=== PATIENT | female | born 1970 | race Hispanic/Latino ===

== ENCOUNTER 2017-08-06 16:30 | Outpatient (AMBR) | payer MEDICAID, SELFPAY ==
--- NOTE | 2017-06-24 18:29 | PT.OIERPT ---
PT OP Initial Eval Patient Information Visit Reasons: Pain Medical Diagnosis: R lateral epicondylitis Treatment Dx #1: R elbow pain Start of Care: 06/24/17 Date of Onset: February 2017 Initial Assessment Subjective Pt is 46 yr old khmer speaking female who c/o R elbow pain x 5 months. 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 Today the pain is 5/10 in the R elbow and is very TTP. PMH: Ceserean x2 Imaging: X-rays of elbow with provider Pt goal: to get rid of the pain in order to do HH chores Objective R geoscience professor strength 25 lbs, L 40 lbs Wrist AROM: Strength: Flexion: 75 deg 4-/5 with elbow pain Extension: 58 deg 3+/5 with pain Special testing: Marcum test: positive Cozen's: positive TTP: moderate/severe common extensor tendon at lateral elbow Cervical screen: positive for neural tension with median nerve ULTT and L C/S sidebending Assessment Pt presentation consistent with lateral epicondylalgia and possible C/S pain referral to lateral arm and elbow. Pt has neural tension with C/S sidebending to the L and PT recommends further diagnostic imaging of C/S. Pt has decreased elbow and wrist strength, geoscience professor strength and high TTP of lateral elbow. Short Term and Prison Goals 1. Ind with HEP 2. Improved geoscience professor strength on R to 40 lbs 3. Pt will open jars with <=1/10 pain in R elbow 4. Improved wrist strength to 4+/5 without pain 5. Decreased TTP from mod to min of R lateral elbow Treatment Plan Pt has 5 visits authorized and will be scheduled for 2x a week. 1. Manual therapy 2. Therex 3. Modalities as indicated, moist heat, ice, estim Frequency and Duration 2x a week for 6 weeks Certification Dates: 06/24/17 to 09/24/17 Office Procedures PT Procedures PT Date of Service: 06/24/17 OP PT Eval Mod Complex 30 minutes: Yes
--- NOTE | 2017-06-24 18:32 | PTNOTE_ITS ---
PT OP Initial Eval Patient Information Visit Reasons: Pain Medical Diagnosis: R lateral epicondylitis Treatment Dx #1: R elbow pain Start of Care: 06/24/17 Date of Onset: February 2017 Initial Assessment Subjective Pt is 46 yr old thai speaking female who c/o R elbow pain x 5 months. 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 Today the pain is 5/10 in the R elbow and is very TTP. PMH: Ceserean x2 Imaging: X-rays of elbow with provider Pt goal: to get rid of the pain in order to do HH chores Objective R clinical research manager strength 25 lbs, L 40 lbs Wrist AROM: Strength: Flexion: 75 deg 4-/5 with elbow pain Extension: 58 deg 3+/5 with pain Special testing: Marcum test: positive Cozen's: positive TTP: moderate/severe common extensor tendon at lateral elbow Cervical screen: positive for neural tension with median nerve ULTT and L C/ S sidebending Assessment Pt presentation consistent with lateral epicondylalgia and possible C/S pain referral to lateral arm and elbow. Pt has neural tension with C/S sidebending to the L and PT recommends further diagnostic imaging of C/S. Pt has decreased elbow and wrist strength, clinical research manager strength and high TTP of lateral elbow. Short Term and Group Home Goals 1. Ind with HEP 2. Improved clinical research manager strength on R to 40 lbs 3. Pt will open jars with <=1/10 pain in R elbow 4. Improved wrist strength to 4+/5 without pain 5. Decreased TTP from mod to min of R lateral elbow Treatment Plan Pt has 5 visits authorized and will be scheduled for 2x a week. 1. Manual therapy 2. Therex 3. Modalities as indicated, moist heat, ice, estim Frequency and Duration 2x a week for 6 weeks Certification Dates: 06/24/17 to 09/24/17 Office Procedures PT Procedures PT Date of Service: 06/24/17 OP PT Eval Mod Complex 30 minutes: Yes
--- NOTE | 2017-06-27 18:54 | PT.ODAYNRPT ---
PT Outpatient Daily Note Date of Service: June 27, 2017 OP Daily Note Visit Reasons: Pain Outpatient Physical Therapy Treatment Date: 06/27/17 Subjective: Some increased soreness of R elbow since evaluation Objective: SEe F/S for therex MT: STM to R wrist extensors x10' with Graston instruments Assessment: Increased neural tension of median nerve on R side. Moderate TTP of R wrist extensors limits wrist strength Plan: Continue per POC Length of Time (minutes) of Treatment: 30 Minutes Office Procedures PT Procedures PT Date of Service: 06/24/17 OP PT Eval Mod Complex 30 minutes: Yes PT Procedures PT Date of Service: 06/27/17 Therapeutic Exercise 15 minutes: Yes Manual Molding Press Operator 15 minutes: Yes
--- NOTE | 2017-07-05 16:14 | PT.ODAYNRPT ---
PT Outpatient Daily Note Date of Service: July 05, 2017 OP Daily Note Visit Reasons: Pain Outpatient Physical Therapy Treatment Date: 07/05/17 Subjective: pt reported feeling a little better today from last visit. Objective: see flow sheet. Assessment: added new exercises to increase salesperson china and glassware strength in which pt did well with no complaints of increased pain. no compensations noted nor muscle fatigue. during STM of the elbow palpated multiple areas of tenderness in which pt would make facial expressions indicating pain or discomfort. advised pt to massage area at home to decrease the muscle tension, pt understood. Plan: continue POC per PT. Length of Time (minutes) of Treatment: 30 Minutes Office Procedures PT Procedures PT Date of Service: 06/24/17 OP PT Eval Mod Complex 30 minutes: Yes PT Procedures PT Date of Service: 06/27/17 Therapeutic Exercise 15 minutes: Yes Manual X Ray Nurse 15 minutes: Yes PT Procedures PT Date of Service: 07/05/17 Therapeutic Exercise 30 minutes: Yes
--- NOTE | 2017-07-05 16:21 | PTNOTE_ITS ---
PT Outpatient Daily Note Date of Service: July 05, 2017 OP Daily Note Visit Reasons: Pain Outpatient Physical Therapy Treatment Date: 07/05/17 Subjective: pt reported feeling a little better today from last visit. Objective: see flow sheet. Assessment: added new exercises to increase transfer driver strength in which pt did well with no complaints of increased pain. no compensations noted nor muscle fatigue. during STM of the elbow palpated multiple areas of tenderness in which pt would make facial expressions indicating pain or discomfort. advised pt to massage area at home to decrease the muscle tension, pt understood. Plan: continue POC per PT. Length of Time (minutes) of Treatment: 30 Minutes Office Procedures PT Procedures PT Date of Service: 06/24/17 OP PT Eval Mod Complex 30 minutes: Yes PT Procedures PT Date of Service: 06/27/17 Therapeutic Exercise 15 minutes: Yes Manual Sales Agent Business Services 15 minutes: Yes PT Procedures PT Date of Service: 07/05/17 Therapeutic Exercise 30 minutes: Yes
--- NOTE | 2017-07-16 18:29 | PT.ODAYNRPT ---
PT Outpatient Daily Note Date of Service: July 16, 2017 OP Daily Note Visit Reasons: Pain Outpatient Physical Therapy Treatment Date: 07/16/17 Subjective: Pt c/o R sided neck pain and she points to the upper trap and lower C/S. The elbow is less painful than before starting therapy. Objective: See F/S for therex MT: HVT x1 to L/R rotary C1-2 and C5-6, STM to R elbow with graston x15' Assessment: Good response to manual therapy and nerve gliding of R UE to reduce C/S and UE pain. Plan: Continue per POC Length of Time (minutes) of Treatment: 30 Minutes Office Procedures PT Procedures PT Date of Service: 06/24/17 OP PT Eval Mod Complex 30 minutes: Yes PT Procedures PT Date of Service: 06/27/17 Therapeutic Exercise 15 minutes: Yes Manual Press Leader 15 minutes: Yes PT Procedures PT Date of Service: 07/05/17 Therapeutic Exercise 30 minutes: Yes PT Procedures PT Date of Service: 07/16/17 Therapeutic Exercise 15 minutes: Yes Manual Press Leader 15 minutes: Yes
--- NOTE | 2017-07-22 18:13 | PTNOTE_ITS ---
PT Outpatient Daily Note Date of Service: July 16, 2017 OP Daily Note Visit Reasons: Pain Outpatient Physical Therapy Treatment Date: 07/22/17 Subjective: Overall better with less neck and elbow pain but she did a lot of HH chores and feels more sore in the shoulders and UE's. The elbow is less painful than before starting therapy. Objective: See F/S for therex MT: STM to R elbow with graston x10' Assessment: Good response to manual therapy and nerve gliding of R UE to reduce C/S and UE pain. Plan: Continue per POC Length of Time (minutes) of Treatment: 30 Minutes Office Procedures PT Procedures PT Date of Service: 06/24/17 OP PT Eval Mod Complex 30 minutes: Yes PT Procedures PT Date of Service: 06/27/17 Therapeutic Exercise 15 minutes: Yes Manual Van Owner Operator 15 minutes: Yes PT Procedures PT Date of Service: 07/05/17 Therapeutic Exercise 30 minutes: Yes PT Procedures PT Date of Service: 07/16/17 Therapeutic Exercise 15 minutes: Yes Manual Van Owner Operator 15 minutes: Yes PT Procedures PT Date of Service: 07/22/17 Therapeutic Exercise 15 minutes: Yes Manual Van Owner Operator 15 minutes: Yes
--- NOTE | 2017-07-24 18:31 | PT.ODAYNRPT ---
PT Outpatient Daily Note Date of Service: July 24, 2017 OP Daily Note Visit Reasons: Pain Outpatient Physical Therapy Treatment Date: 07/24/17 Subjective: Overall better with less neck and elbow pain but she did a lot of HH chores and feels more sore in the shoulders and UE's. The elbow is less painful than before starting therapy. Objective: See F/S for therex MT: STM to R elbow with graston x10' Anatomy Professor strength: R 23 lbs, L 25 lbs Wrist strength: Flexion: 4-/5 Extension: 4-/5 Assessment: Good response to manual therapy and nerve gliding of R UE to reduce C/S and UE pain. Anatomy Professor strength and elbow TTP is unchanged from evaluation. Pt would benefit from continued therapy to reach goals of increased sap basis architect strength and wrist Plan: Request additional visits to complete POC Length of Time (minutes) of Treatment: 30 Minutes Office Procedures PT Procedures PT Date of Service: 06/24/17 OP PT Eval Mod Complex 30 minutes: Yes PT Procedures PT Date of Service: 06/27/17 Therapeutic Exercise 15 minutes: Yes Manual Supervisor Shipfitters 15 minutes: Yes PT Procedures PT Date of Service: 07/05/17 Therapeutic Exercise 30 minutes: Yes PT Procedures PT Date of Service: 07/16/17 Therapeutic Exercise 15 minutes: Yes Manual Supervisor Shipfitters 15 minutes: Yes PT Procedures PT Date of Service: 07/22/17 Therapeutic Exercise 15 minutes: Yes Manual Supervisor Shipfitters 15 minutes: Yes PT Procedures PT Date of Service: 07/24/17 Therapeutic Exercise 15 minutes: Yes Manual Supervisor Shipfitters 15 minutes: Yes
--- NOTE | 2017-07-24 18:48 | PTNOTE_ITS ---
PT Outpatient Daily Note Date of Service: July 24, 2017 OP Daily Note Visit Reasons: Pain Outpatient Physical Therapy Treatment Date: 07/24/17 Subjective: Overall better with less neck and elbow pain but she did a lot of HH chores and feels more sore in the shoulders and UE's. The elbow is less painful than before starting therapy. Objective: See F/S for therex MT: STM to R elbow with graston x10' Catering Sous Chef strength: R 23 lbs, L 25 lbs Wrist strength: Flexion: 4-/5 Extension: 4-/5 Assessment: Good response to manual therapy and nerve gliding of R UE to reduce C/S and UE pain. Catering Sous Chef strength and elbow TTP is unchanged from evaluation. Pt would benefit from continued therapy to reach goals of increased hospital nursing assistant strength and wrist Plan: Request additional visits to complete POC Length of Time (minutes) of Treatment: 30 Minutes Office Procedures PT Procedures PT Date of Service: 06/24/17 OP PT Eval Mod Complex 30 minutes: Yes PT Procedures PT Date of Service: 06/27/17 Therapeutic Exercise 15 minutes: Yes Manual Customer Experience Specialist 15 minutes: Yes PT Procedures PT Date of Service: 07/05/17 Therapeutic Exercise 30 minutes: Yes PT Procedures PT Date of Service: 07/16/17 Therapeutic Exercise 15 minutes: Yes Manual Customer Experience Specialist 15 minutes: Yes PT Procedures PT Date of Service: 07/22/17 Therapeutic Exercise 15 minutes: Yes Manual Customer Experience Specialist 15 minutes: Yes PT Procedures PT Date of Service: 07/24/17 Therapeutic Exercise 15 minutes: Yes Manual Customer Experience Specialist 15 minutes: Yes
--- NOTE | 2017-08-06 18:11 | PTNOTE_ITS ---
PT Outpatient Daily Note Date of Service: August 06, 2017 OP Daily Note Visit Reasons: Pain Outpatient Physical Therapy Treatment Date: 08/06/17 Subjective: Overall better with less neck and elbow pain but she did a lot of HH chores and feels more sore in the shoulders and UE's. The elbow is less painful than before starting therapy. Objective: See F/S for therex MT: STM to UT's and suboccipitals, HVT x1, 10' total Assessment: Good response to manual therapy and nerve gliding of R UE to reduce C/S and UE pain. Suboccipitals are more sore today. Plan: Continue with additional visits Length of Time (minutes) of Treatment: 30 Minutes Office Procedures PT Procedures PT Date of Service: 06/24/17 OP PT Eval Mod Complex 30 minutes: Yes PT Procedures PT Date of Service: 06/27/17 Therapeutic Exercise 15 minutes: Yes Manual Continuous Mining Machine Lode Miner 15 minutes: Yes PT Procedures PT Date of Service: 07/05/17 Therapeutic Exercise 30 minutes: Yes PT Procedures PT Date of Service: 07/16/17 Therapeutic Exercise 15 minutes: Yes Manual Continuous Mining Machine Lode Miner 15 minutes: Yes PT Procedures PT Date of Service: 08/06/17 Therapeutic Exercise 15 minutes: Yes Manual Continuous Mining Machine Lode Miner 15 minutes: Yes PT Procedures PT Date of Service: 07/22/17 Therapeutic Exercise 15 minutes: Yes Manual Continuous Mining Machine Lode Miner 15 minutes: Yes PT Procedures PT Date of Service: 07/24/17 Therapeutic Exercise 15 minutes: Yes Manual Continuous Mining Machine Lode Miner 15 minutes: Yes
== END 2017-09-22 23:59 ==
PROVIDERS: Visit Provider Orthopaedic Surgery
DX: I10 Essential (primary) hypertension (principal)
CPT/HCPCS: 97110; 97140; 97162